=== PATIENT | female | born 1985 | race Caucasian/White ===

== ENCOUNTER 2022-07-05 03:01 | Day surgery (SDC) | payer OTHER, SELFPAY ==
[2022-07-05] VITALS (10 sets, daily range): BP systolic 114–136; BP diastolic 59–78; PULSE 80–136; RESP 16–19; TEMP 36.3–36.6; O2SAT 98–100; BMI 42.6
--- NOTE | 2022-07-05 03:16 | US_ITS ---
ACR Level 3 findings have been noted. An addendum which confirms receipt of the report will follow. EXAM: US OB Transvaginal HISTORY: RLQ PAIN RADIATING TO RIGHT COLLARBONE -- SPOTTING TECHNIQUE: US OB Transvaginal COMPARISON: None. LIMITATIONS: None. UTERUS Size: Within normal limits Masses: None. Endometrium 26 mm. Gestational sac: No intrauterine gestational sac visualized. Subchorionic hemorrhage: None. Yolk sac: Not visualized. pole: Not visualized. Cardiac activity: Not identified. OVARIES/ADNEXA Right: Large heterogeneous collection in the right adnexa inseparable from the uterus without definite visualization of the right ovary. 2.8 cm thick-walled cystic structure with echogenic contents in the right adnexa suspicious for gestational sac. Left: Within normal limits OTHER: Large complex fluid in the pelvis, likely hemorrhagic. US/Transvaginal w/Preg US IMPRESSION: Large heterogeneous collection in the right adnexa with findings highly suspicious for ruptured ectopic . Emergent obstetric consultation recommended. Electronically Signed: Vito Henderson MD at 4:56 EST ,
--- NOTE | 2022-07-05 03:16 | RAD_ITS ---
STUDY: X-RAY - UNILATERAL RIBS ( RIGHT ) WITH CHEST REASON FOR EXAM: Female, 37 years old patient with chest pain. Shield abdomen, 8-9 weeks . TECHNIQUE - RIBS: 4 view(s) of the ribs. TECHNIQUE - CHEST: Single PA view of the chest. COMPARISON: None. FINDINGS - RIBS: Normal visualized ribs without a demonstrated fracture. FINDINGS - CHEST: The lungs are clear and expanded. There is no demonstrated pleural abnormality. Normal size heart. Normal mediastinum and crissy. Normal visualized pulmonary arteries. Normal visualized aortic arch and descending thoracic aorta. Normal visualized thoracic spine. Normal visualized ribs, clavicles, and shoulders. There is no demonstrated abnormality of the visualized soft tissue structures of the upper abdomen. RAD/Ribs Uni Min 3V w/PA Chest IMPRESSION: RIBS: No definite acute displaced rib fracture. CHEST: No radiographic evidence of acute cardiopulmonary disease. Electronically Signed: Nilda Lin MD at 6:09 EST ,
--- NOTE | 2022-07-05 03:23 | EDS_ITS ---
HPI History of Present Illness Chief Complaint: General Illness Narrative Narrative: 37-year-old female is a G4, P0 at approximately 8-1/2 to 9 weeks gestation. Last menstrual period was at the beginning of May around the 6. She states that she was late for her menses this past month in early June, and she did a home test. She states she has not followed up with an [facility] because her insurance is changing and she needs to change providers. She presents mainly tonight because when she rolled over in bed, she is now experiencing pain the right side of her chest that also radiates upward and she has pain under her collarbone. It is sometimes worse when she raises her arm. She denies any fevers or chills. No cough. Additionally, she states she had spotting at the beginning of this which resolved, but then returned recently and that she is spotting but denies any abdominal pain or heavy vaginal bleeding or discharge. [facility] Medical History (Updated 07/05/22 @ 05:10 by Ted Roa MD) Asthma Home Medications [id number] 1 mg tablet tab PO 07/05/22 [History Last Taken Unknown] Allergy/AdvReac Type Severity Reaction Status Date / Time cat dander [cats] Allergy Other Verified 07/05/22 03:05 Social History Smoking Status: Never smoker ROS ROS ED ROS Narrative Constitutional: No fever, no chills. HEENT: No sore throat. No neck pain. No loss of vision. No rhinorrhea. Cardiovascular: Positive right-sided rib pain and rib pain under collarbone/chest pain. No palpitations. No pedal edema. Respiratory: No cough, no shortness of breath. Abdominal: No abdominal pain. No nausea. No vomiting. Genitourinary: No dysuria. No hematuria. Spotting with 8-1/2 to 9-week gestation according to menses. Musculoskeletal: No myalgias. No arthralgias. Neurologic: No headaches. No dizziness. No lightheadedness. Skin: No rash. No change in color. Psychiatric: No depression. No anxiety. EXAM Physical Exam Narrative Exam Narrative: Afebrile. Vital signs noted. HEENT: Normocephalic. Atraumatic. PERRL, EOMI. Neck soft and supple. No point tenderness or step off. Cardiovascular: Positive tachycardia no murmurs, rubs, or gallops appreciated. Mild chest wall tenderness on anterior ribs 1-3 and on chest wall without crepitance on right. Respiratory: No tachypnea. Lungs clear to auscultation bilaterally. Gastrointestinal: Abdomen soft, minimal tenderness to palpation in right pelvis with normoactive bowel sounds. No rebound or guarding. Neurological: Awake. Alert. Nonfocal, nonlateralizing. Skin: No rash. Normal color. No pallor. Musculoskeletal: No pedal edema. Full range of motion extremities. Const Vital Signs: 07/05/22 03:01 07/05/22 05:07 Temperature 97.4 F L Temperature Source Temporal Pulse Rate 136 H 111 H Respiratory Rate 18 18 Blood Pressure 136/78 H 134/68 H Blood Pressure Mean 97 90 Pulse Ox 98 99 Oxygen Delivery Method Room Air Room Air MDM MDM MDM Narrative Medical decision making narrative: Comprehensive work-up was pursued. She was warned of the risk of radiation regarding rib x-rays and acknowledges an understanding. Attempt will be made to shield the abdomen regardless. Rib x-rays reviewed by myself did show no evidence of fracture or pneumothorax. CBC shows normal white count of 6.4, hemoglobin stable at 12.3 with normal platelet count of 195. hCG quantitative measurement is elevated at 9143. Urinalysis appears to be a contaminated specimen with 10-25 squamous epithelial cells and 25-50 WBCs. I do not feel antibiotics are indicated. Of significance is her transvaginal ultrasound which does not reveal an intrauterine . Suspicion is high for ruptured ectopic according to the radiologist's reading. There is a large heterogeneous collection in the right adnexa. I discussed the patient with Dr. Felipe with [facility]. Currently, patient is hemodynamically stable with a blood pressure of 134/68, she remains tachycardic at 111. She states her pain is under control. Dr. Felipe will see the patient in the emergency department and continue further management of her ruptured ectopic . She will be taken to the OR. Patient is in stable condition. Lab Data Attestation: I reviewed the patient's lab results. Labs: Laboratory Results - last 24 hr 07/05/22 07/05/22 07/05/22 03:23 03:30 03:30 WBC 6.4 RBC 4.07 L Hgb 12.3 Hct 36.6 L MCV 89.9 MCH 30.2 MCHC 33.6 RDW Std Deviation 43.0 RDW Coeff of Lesli 13.1 Plt Count 195 MPV 11.0 Immature Gran % (Auto) 0.200 Neut % (Auto) 76.3 H Lymph % (Auto) 17.6 L [place] % (Auto) 5.0 Eos % (Auto) 0.3 Baso % (Auto) 0.6 Absolute Neuts (auto) 4.9 Absolute Lymphs (auto) 1.12 Nucleated RBC % 0 HCG, Quant 9143 H Urine Color Yellow Urine Clarity Cloudy Urine pH 6.0 Ur Specific [place] 1.020 Urine Protein 100 H Urine Glucose (UA) Normal Urine Ketones 5 H Urine Occult Blood 250 H Urine Nitrite Negative Urine Bilirubin Negative Urine Urobilinogen 4 H Ur Leukocyte Esterase 500 H Urine RBC 0-5 SEEN Urine WBC 25-50 SEEN Ur Squamous Epith Cells 10-25 SEEN Urine Bacteria 2+ Urine Mucus 2+ Blood Type 07/05/22 03:30 WBC RBC Hgb Hct MCV MCH MCHC RDW Std Deviation RDW Coeff of Lesli Plt Count MPV Immature Gran % (Auto) Neut % (Auto) Lymph % (Auto) [place] % (Auto) Eos % (Auto) Baso % (Auto) Absolute Neuts (auto) Absolute Lymphs (auto) Nucleated RBC % HCG, Quant Urine Color Urine Clarity Urine pH Ur Specific [place] Urine Protein Urine Glucose (UA) Urine Ketones Urine Occult Blood Urine Nitrite Urine Bilirubin Urine Urobilinogen Ur Leukocyte Esterase Urine RBC Urine WBC Ur Squamous Epith Cells Urine Bacteria Urine Mucus Blood Type Cancelled Radiography Diagnostic Testing: Clinical Impression(s) from Imaging Studies Obstetrics Ultrasound 07/05/22 03:16 IMPRESSION: Large heterogeneous collection in the right adnexa with findings highly suspicious for ruptured ectopic . Emergent obstetric consultation recommended. Electronically Signed: Vito Henderson MD at 4:56 EST , ADDENDUM: 07/05/22515 IMPRESSION: Large heterogeneous collection in the right adnexa with findings highly suspicious for ruptured ectopic . Emergent obstetric consultation recommended. N.B. : Dr. Ted Roa, AA, confirmed on 07/05/2022 05:09:50 (ET) that the healthcare facility has received the radiology report. Electronically Signed: Vito Henderson MD at 4:56 EST , Discharge Plan Dx/Rx/DC Orders Clinical Impression: Ruptured ectopic , Abdominal pain, Right shoulder pain Disposition Disposition: Acute Care Hospital [facility]
[2022-07-05] MEDS: 0.9% Normal Saline 1,000 ML 1000 ML IV (03:31)
[2022-07-05] MEDS: Acetaminophen 500 MG Tablet 1000 MG PO (03:31)
[2022-07-05 03:43] LABS: Absolute Lymphocyte Count 1.12 X10^3/uL (0.83-4.51); Absolute Neutrophil Count 4.9 X10^3/uL (2.0-7.7); Basophil# 0.04 X10^3/uL; Basophil% 0.6 % (0-1); Eosinophil# 0.02 X10^3/uL; Eosinophils% 0.3 % (0-5); Hematocrit 36.6 % (37-47); Hemoglobin 12.3 g/dL (12.0-15.0); Lymphocyte # 1.12 X10^3/ul (0.83-4.51); Lymphocyte % 17.6 % (19-41); Mean Corp Hgb Conc 33.6 g/dL (32-36); Mean Corpuscular Hgb 30.2 pg (27.0-32.0); Mean Corpuscular Volume 89.9 fL (81-99); Monocyte# 0.32 X10^3/uL; NRBC Flagged by Analyzer 0 % (0-5); Neutrophil # 4.86 X10^3/uL (2.7-7.7); Neutrophil % 76.3 % (47-70); Platelet Count 195 K/mm3 (150-450); RBC Distribution Width CV 13.1 % (11.6-14.6); Red Blood Count 4.07 M/mm3 (4.2-5.4); White Blood Count 6.4 K/mm3 (4.4-11.0)
[2022-07-05 03:56] LABS: Color, Urine Yellow (Yellow); Glucose, Dipstick Normal (Normal); Ketone-Dipstick 5 mg/dl (Negative); Leukocyte Esterase-Dipstick 500 /ul (Negative); Nitrite-Dipstick Negative (Negative); Occult Blood-Urine 250 /ul (Negative); Protein-Dipstick 100 mg/dl (Negative); Urine Bilirubin Dipstick Negative (Negative); Urine Clarity Cloudy (Clear); Urine Urobilinogen 4 mg/dl (Normal)
[2022-07-05 04:11] LABS: Bacteria 2+ /hpf (None Seen); Mucous, Urine 2+ /hpf (<or=2+); Red Blood Cells-Urine 0-5 SEEN /hpf (0-5); Squamous Epithelial Cells - UA 10-25 SEEN /hpf (5-10); White Blood Cells 25-50 SEEN /hpf (0-5)
[2022-07-05 04:34] LABS: hCG Titer Quant., Serum 9143 mIU/mL (1-3)
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
--- NOTE | 2022-07-05 07:13 | DCINST_ITS ---
Discharge Instructions Diet Discharge Diet: No restrictions (after 24 hours) Activity Discharge Activity: Return to Normal Activity (after 24 hours) May resume sexual activity in: 1-2 weeks Weight Bearing Status: Weight bearing as tolerated Dressing / Incision Call your doctor if your incision/area has: Continuous Slow Oozing, Sudden Increased Bleeding, Increased Pain/ Swelling, Increased Redness, Foul Smelling Discharge and Swelling at the incision site Call your doctor if you observe: Fever of 101 or Higher, Change in Color, Inability to urinate, Inability to have a bowel movement, Using more than 1 pad per hour, Shortness of breath, Fainting spells, Chest pain, Increased palpitations (irregular heartbeat) and Uncontrolled pain Suture Line Care: Avoid Pulling/Pushing and Avoid Pinching/Bending Cleanse incision/area with: Soap & Water Follow Up Care Please Follow Up With: Marta Felipe MD When: 1-2 weeks Test Results: Test results from this visit will be discussed in further detail at your follow- up appointment, if applicable. Discharge Plan Admission Admit Date/Time: 07/05/22 06:38 Primary Reason for Your Visit: Ectopic Attending Provider: Marta Felipe Primary Care Provider: Janice Kline Primary Discharge Orders/Prescriptions Prescriptions: New acetaminophen [Tylenol Extra Strength] 500 mg tablet 1,000 mg PO Q6H PRN (Reason: pain) Qty: 30 0RF ibuprofen 600 mg tablet 600 mg PO Q6H PRN (Reason: pain) Qty: 30 0RF oxycodone 5 mg tablet 5 mg PO Q8H PRN (Reason: pain) 3 Days Qty: 7 0RF Continued [id number]-[id number]-FA 1 mg Tablet PO Referrals / Follow Up: [facility] Primary [Primary Care Provider] - Disposition Disposition (needs filled in before D/C Order can be placed): Home, Self Care
--- NOTE | 2022-07-05 08:00 | FAL_PTH ---
PATIENT: PAM RENNER LOC: [facility] [place][id number] AGE/SX: 37/F ROOM: RE07/05/[address]: Dr. Marta Felipe MD : 1985 BED: DIS: 07/05/2022 SPEC #: [id number] RECD: 07/05/22 13:15 STATUS: JAEL NEDA #: [id number] JOSE: 07/05/22 08:[address]: Marta Felipe DEPT: SURGICAL PATHOLOGY RECD BY: Rosio Coffman ENTERED: 07/05/22 13:42 SP TYPE: ECTOPIC OTHR DR: No Primary Care Phys Tissues: ECTOPIC PREG Procedures: Surgery Specimen Level IV HEADER OPERATION: Laparoscopic removal ectopic , right salpingectomy PRE-OP DIAGNOSIS: Ruptured ectopic TISSUE SUBMITTED: Right fallopian tube and ectopic MICROSCOPIC DIAGNOSIS Right fallopian tube, salpingectomy: Chorionic villi and decidual change consistent with tubal . AM:cecilio 07/09/2022 MICROSCOPIC DESCRIPTION Slides are reviewed. GROSS DESCRIPTION Received in fixative is one container labeled with the patient's name and designated right fallopian tube and ectopic. The specimen consists of a fallopian tube measuring 5.5 cm in length and 0.4 to 1.5 cm in diameter. Hemorrhagic tissue with blood clot are identified at the fimbrial end measuring 2.5 x 1 x 0.5 cm. Sections of fallopian tube reveal focally a small amount of hemorrhagic material in the lumen. The entire specimen is submitted in four cassettes. Cassette 4 contains the hemorrhagic tissue with blood clot. / SJ:cecilio 07/05/2022 TC:5 CPT: 83921
--- NOTE | 2022-07-05 08:47 | PCM.OPRPT ---
Problems Associated Problem List Diagnoses (1) Ruptured ectopic : Report of Operation Date of Procedure: 07/05/22 Pre-Operative Diagnosis: ruptured right ectopic tubal , acute abdominal pain, hemoperitoneum Post-Operative Diagnosis: same Surgery/Procedure Performed:: laparoscopic right salpingectomy with evacuation or hemoperitoneum Description of Surgical Findings:: large amount of hemoperitoneum, actively bleeding right fallopian tube, normal uterus w/ small subserosal anterior fibroid, normal ovaries and left tube Surgeon: Bebe Foster cryptologic technician operator/analyst: None Type of Anesthesia: General Anesthesiologist: Brien Law Special Medications: none Specimen's removed: right fallopian tube Drains: none Estimated Blood Loss (mL): 500 cc Fluids Replaced: 1050 cc Description of Procedure: The patient was taken to the operating room where she was prepped and draped in the dorsolithotomy position. A weighted speculum was placed in the vagina and the anterior lip of the cervix was grasped with a tenaculum. The Miracle uterine manipulator was placed and the remainder of the instruments were removed from the vagina. Attention was turned to the abdomen. All port sites were infiltrated with 0.5% Marcaine before skin incisions were made. A 5 mm [intraumbilical] incision was made. The anterior abdominal wall was tented up with 2 towel clamps while a 5 mm blade less trocar and sleeve were [directly inserted]. Intraperitoneal placement was confirmed with the laparoscope. The pneumoperitoneum was created and the underlying abdominal contents were intact. The patient was placed in Trendelenburg. Right and left lower quadrant ports were placed under direct visualization lateral to the inferior epigastric vessels. The bowel was swept away and the above findings were noted. The suction fulfillment associate was used to remove approximately 500 cc of clot and blood from the peritoneal cavity. The right tube was then identified and it was actively dripping blood.Decision was made to proceed with salpingectomy. The LigaSure device was used to clamp seal and transect the antimesenteric portions of the right tube to the cornual insertion of the uterus. The tube was amputated from the uterus and the pedicles were all confirmed to be hemostatic. The specimen was placed in a 5 mm Endobag and brought out through the umbilical incision. The pedicle was reexamined and found to be hemostatic. The lateral ports were removed under direct visualization and no active bleeding was noted. The pneumoperitoneum was released. The skin incisions were closed with Monocryl suture in a subcuticular fashion and skin glue. The vaginal instruments were removed and the vaginal sweep was completed by me. The procedure was performed by me with assistance By the scrub. All sponge and needle counts were correct and the patient was taken to the recovery room in stable condition. Grafts/Implants Used: none Procedure Start Time: 08:13 Procedure Stop Time: 08:50 Complications none Admit VTE Documentation VTE Mechan Device Prophylaxis: SCD's VTE Pharm Prophylaxis ordered?: No Reason prophylaxis not ordered:: Procedure Not Indicated
[2022-07-05] MEDS: oxyCODONE 5 MG Tablet PO (10:19)
== END 2022-07-05 11:34 | disposition home or self-care (01) ==
LOC: ED 05:10 → SDC 05:52 → ACINP 06:14 → MS3 06:39 → SDC 09:27 → AC 09:33
PROVIDERS: Obstetrics & Gynecology; Emergency Provider Emergency Medicine; Visit Provider Obstetrics & Gynecology
PROC: 10T24ZZ Resection of Products of Conception, Ectopic, Percutaneous Endoscopic Approach (ICD-10-PCS; CPT 59150; principal; 2022-07-05 07:45)
DX: O00.90 Unspecified ectopic pregnancy without intrauterine pregnancy (principal); Z3A.09 9 weeks gestation of pregnancy; K66.1 Hemoperitoneum; R10.9 Unspecified abdominal pain; M25.511 Pain in right shoulder; Z86.19 Personal history of other infectious and parasitic diseases
CPT/HCPCS: 59151; 00840; 71101; 76817; 81001; 84702; 85025; 86900; 86901; 88305; 99283; J7030; A4216; J2405